=== PATIENT | female | born 1930 | race Caucasian/White ===

== ENCOUNTER → 2018-07-28 | Outpatient (CLI) | payer SELFPAY | END | disposition home or self-care (01) | LOC: MSC 11:30 | PROVIDERS: ATTEND Anesthesiology | DX: M51.36 Other intervertebral disc degeneration, lumbar region (principal); M96.1 Postlaminectomy syndrome, not elsewhere classified; M47.816 Spondylosis without myelopathy or radiculopathy, lumbar region; M54.12 Radiculopathy, cervical region; M47.12 Other spondylosis with myelopathy, cervical region; Z88.0 Allergy status to penicillin; Z79.899 Other long term (current) drug therapy ==